=== PATIENT | female | born 1975 ===

== ENCOUNTER 2016-09-29 09:08 | Day surgery (SDC) | payer OTHER ==
[2016-09-29 10:08] VITALS: BMI 25.9
[2016-09-29] MEDS ORDERED: Propofol 10 mg/ml Inj (20 ML) ONE (11:08)
[2016-09-29 11:29] VITALS: TEMP 98
[2016-09-29 12:12] VITALS: O2SAT 98
[2016-09-29 14:27] VITALS: BP 110/60; PULSE 58; RESP 14
== END 2016-09-29 12:20 | disposition home or self-care (01) ==
LOC: C.ENDO 09:08
PROVIDERS: ATTEND Internal Medicine Gastroenterology
DX: K29.70 Gastritis, unspecified, without bleeding (principal)
CPT/HCPCS: 43239; 84703; 88305; 88313; 88342; J2704

== ENCOUNTER 2016-11-12 06:08 | Emergency (ER) | payer OTHER ==
[2016-11-12 06:08] VITALS: BMI 25.9
[2016-11-12] MEDS ORDERED: Morphine 4 MG/ML VIAL ONE (06:50)
[2016-11-12 06:57] LABS: BASO % 0.6 % (0.0-2.0); EOS # 0.1 K/uL (0.0-0.7); EOS % 0.8 % (0.0-4.0); HEMATOCRIT 38.1 % (34.0-47.0); LYMPH % 29.9 % (20.0-40.0); MEAN CELL VOLUME 89.4 fL (81.0-99.0); MEAN CORPUSCULAR HEMOGLOBIN 30.3 pg (27.0-31.0); MEAN CORPUSCULAR HGB CONC 33.9 g/dL (33.0-37.0); MEAN PLATELET VOLUME 8.1 fL (7.2-11.7); MONO # 0.4 K/uL (0.0-0.8); MONO % 5.4 % (0.0-10.0); RED CELL DISTRIBUTION WIDTH 12.8 % (11.5-14.5); WHITE BLOOD COUNT 6.7 K/uL (4.8-10.8)
[2016-11-12] MEDS ORDERED: Morphine 4 MG/ML VIAL IV STA (07:15)
[2016-11-12] MEDS ORDERED: Sodium Chloride 0.9% 1,000 ML IV ONE (07:15)
[2016-11-12 07:22] LABS: CHLORIDE 108 mmol/L (98-107); SODIUM 141 mmol/L (132-148)
[2016-11-12 07:25] LABS: ALB/GLOB RATIO 1.5 (1.0-2.1); ALKALINE PHOSPHATASE 70 U/L (38-126); ALT/SGPT 40 U/L (9-52); AST/SGOT 26 U/L (14-36); BILIRUBIN,TOTAL 0.8 mg/dL (0.2-1.3); BLOOD UREA NITROGEN 14 mg/dL (7-17); CALCIUM 8.5 mg/dl (8.6-10.4); CARBON DIOXIDE 21 mmol/L (22-30); GFR AFRICAN-AMERICAN > 60; GLUCOSE,RANDOM 137 mg/dL (65-105); TOTAL PROTEIN 6.9 g/dL (6.3-8.3)
[2016-11-12] MEDS ORDERED: Iohexol 240 (50 ml) PO ONE (08:00)
[2016-11-12 08:05] LABS: RBC URINE 300 /hpf (0-3); URINE BACTERIA RARE (<OCC); URINE BILIRUBIN NEGATIVE (NEGATIVE); URINE BLOOD 3+ (NEGATIVE); URINE COLOR Yellow (YELLOW); URINE GLUCOSE (UA) NORMAL (Normal); URINE HYALINE CAST 0-2 /lpf (0-2); URINE KETONE NEGATIVE (NEGATIVE); URINE LEUKOCYTE ESTERASE NEG Leu/uL (Negative); URINE PROTEIN 1+ mg/dL (NEGATIVE); URINE UROBILINOGEN NORMAL mg/dL (0.2-1.0); WBC URINE 4 /hpf (0-5)
[2016-11-12] MEDS ORDERED: Iohexol 240 (50 ml) ONE (08:08)
--- NOTE | 2016-11-12 08:57 | C.PDOC ---
History Of Present Illness 41 yr old female presents to the ER With complaints of left abdominal pain since 5am this morning. Patient reports of 3 episodes of non bilious and non bloody vomiting and mild nausea. Patient denies fever, diarrhea, dysuria, hematuria, vaginal discharge or vaginal bleeding. Time Seen by Provider: 11/12/16 07:05 Chief Complaint (Nursing): Abdominal Pain History Per: Patient History/Exam Limitations: no limitations Onset/Duration Of Symptoms: Sudden Onset (Since 5am this morning ) Current Symptoms Are (Timing): Still Present Location Of Pain/Discomfort: LUQ, LLQ Past Medical History Reviewed: Historical Data, Nursing Documentation, Vital Signs Vital Signs: Last Vital Signs Temp 97.4 F L 11/12/16 11:56 Pulse 60 11/12/16 11:56 Resp 18 11/12/16 11:56 BP 104/64 11/12/16 11:56 Pulse Ox 99 11/12/16 11:56 Surgical History: Appendectomy, Endoscopy, - [facility] Procedures BILAT TUBAL DIVISION NEC (03/02/14) LOW CERVICAL (03/02/14) Family History: States: No Known Family Hx - Social History Hx Alcohol Use: No Hx Substance Use: No - Immunization History Hx Tetanus Toxoid Vaccination: No Hx Influenza Vaccination: No Hx Pneumococcal Vaccination: No Review Of Systems Except As Marked, All Systems Reviewed And Found Negative. Constitutional: Negative for: Fever Gastrointestinal: Positive for: Nausea (Mild ), Vomiting (3x ), Abdominal Pain ( Left sided). Negative for: Diarrhea Genitourinary: Negative for: Dysuria, Hematuria, Vaginal Discharge, Vaginal Bleeding Physical Exam - Physical Exam Appears: Well, Non-toxic, No Acute Distress Skin: Warm, Dry, No Rash Head: Atraumatic, Normacephalic Oral Mucosa: Moist Chest: Symmetrical, No Tenderness Cardiovascular: Rhythm Regular, No Murmur Respiratory: Normal Breath Sounds, No Rales, No Rhonchi, No Wheezing Gastrointestinal/Abdominal: Soft, Tenderness (Left sided tenderness. Lower quadrant more tender then upper. ) Back: Normal Inspection, No CVA Tenderness Extremity: Normal ROM, No Swelling Neurological/Psych: Oriented x3, Normal Speech, Normal Motor ED Course And Treatment - Laboratory Results Result Diagrams: 11/12/16 06:52 11/12/16 06:52 O2 Sat by Pulse Oximetry: 98 - CT Scan/US CT - Abdomen & Pelvis Other Rad Studies (CT/US): Read By Radiologist, Radiology Report Reviewed CT/US Interpretation: PROCEDURE: CT abdomen and pelvis dated 11/12/2016. HISTORY: Left-sided abdominal pain (lower>upper). COMPARISON: Comparison made with prior the CT scan of the abdomen and pelvis dated 01/27/2015. TECHNIQUE: Contiguous axial images of the abdomen and pelvis pelvis performed following intravenous injection of approximately 100 cc Visipaque 320 contrast material. . 2 dimensional coronal and Sagittal reformats generated. Radiation dose: Total exam DLP = 430.36 mGy-cm. This CT exam was performed using one or more of the following dose reduction techniques: Automated exposure control, adjustment of the mA and/or kV according to patient size, and/or use of iterative reconstruction technique. FINDINGS: LOWER THORAX: Mild passive atelectasis both posterior lower lung bryant. No evidence of basilar pneumothorax. . Small hiatal hernia. Heart size within range normal. LIVER: Liver is enlarged measuring nearly 20 cm in CC dimension. Mild diffuse fatty hepatic infiltration. . Portal and splenic veins are opacified. GALLBLADDER AND BILE DUCTS: Gallbladder is physiologically distended. No evidence of intraluminal gallbladder calculi. PANCREAS: There is a tiny approximately 2.3 mm rounded low-attenuation focus along the posterior margin of the posterior body/ tail of the pancreas junction (axial series 2, image number 24) that probably represents volume averaging of adjacent peripancreatic fat. Followup interval could be performed to assess stability and exclude other pathology including the malignancy which is less likely the cannot be completely excluded. The pancreatic duct is visible lobe does not appear significantly dilated. SPLEEN: The spleen exhibits normal size measuring approximately 11.1 cm. No splenic mass collection or calcification. ADRENALS: There are no adrenal lesions. KIDNEYS AND URETERS: Kidneys exhibit symmetric nephrograms. There is a tiny 2.4 mm radiopaque density possibly a tiny calcification in the left aspect of the pelvis questionably posterior to the bladder (small calcified pelvic phlebolith) or possibly in the left UVJ (left UVJ calculus). . Correlation with urinalysis recommended to exclude a left UVJ calculus. Previously noted and described tiny right UVJ calculus no longer visible. BLADDER: Urinary bladder is physiologically distended. No evidence of intraluminal urinary bladder calculi. REPRODUCTIVE: Probable hemorrhagic and or involuting left ovarian cyst measuring approximately 17 mm x 14 mm surrounded by a enhancing rim. There is also small amount of free fluid seen within the pelvis. Prominent endometrium. . APPENDIX: The appendix is not seen with certainty on this exam. No evidence of inflammatory changes right lower quadrant of the abdomen. BOWEL: Evaluation of the bowel is limited due to incomplete opacification. The stomach is incompletely distended which presumably accounts thick-walled appearance. Gastritis or other intrinsic/ invasive wall lesion not excluded. Visualized loops of small bowel exhibit normal contour and caliber. No evidence of acute mechanical small bowel obstruction. Oral contrast material has extended into the colon to the level of the splenic flexure region. . The appears to be at least 1 on diverticulum along the proximal descending and another possibly along the sigmoid colon however no radiographic evidence of acute diverticulitis. Diverticulum seen along the descending No definitive abnormal mural wall thickening. PERITONEUM: No gross free intraperitoneal air. Small amount free fluid in the pelvis as above. Small fat containing umbilical hernia. LYMPH NODES: No significant/ bulky adenopathy. VASCULATURE: No evidence of abdominal aortic aneurysm. BONES: The osseous structures appear intact with no evidence of acute compression fractures nor retropulsed fragments the visualized lower thoracic or lumbar spine. There is straightening of the normal lumbar lordosis however vertebral bodies otherwise exhibit normal alignment. Right acetabulum is shallow with poor coverage of the right femoral head on which is also slightly elevated compared to the left side. Small subchondral cystic changes along the acetabulum also noted. . Collectively these findings consistent with long- standing underlying developmental. OTHER FINDINGS: None. IMPRESSION: There is a small involuting left ovarian cyst with small amount of fluid in the pelvis as above. Prominent endometrium. There is a tiny 2.4 mm radiopaque density possibly a tiny calcification in the left aspect of the pelvis questionably posterior to the bladder (small calcified pelvic phlebolith) or possibly in the left UVJ (left UVJ calculus). . Correlation with urinalysis recommended to exclude a left UVJ calculus. Previously noted and described tiny right UVJ calculus no longer visible. Hepatomegaly with fatty hepatic infiltration. There is a very tiny low-attenuation focus within the posterior aspect of the pancreas at the posterior body/ tail junction that probably represents volume averaging peripancreatic fat however followup CT scan at interval recommended to assess stability and exclude other pathology including but not limited to malignancy. 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 Right acetabulum is shallow with poor coverage of the right femoral head on which is also slightly elevated compared to the left side. Small subchondral cystic changes along the acetabulum also noted. . 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 Case discussed with Dr. Man at approximately 11 a.m. with written down and read back verification. Medical Decision Making Medical Decision Making: PLAN: * CT - Abdomen & Pelvis * CBC * CMP * POC * Urinalysis * Zofran IVP * Morphine IV * Sodium Chloride IV Disposition - Disposition Referrals: [facility] [Outside] [facility] [Outside] Disposition: HOME/ ROUTINE Disposition Time: 11:15 Condition: GOOD Additional Instructions: Thank you for letting us take care of you today. Your provider was Dr. Man. You were treated for a kidney stone. The emergency medical care you received today was directed at your acute symptoms. If you were prescribed any medication, please fill it and take as directed. It may take several days for your symptoms to resolve. Return to the Emergency Department if your symptoms worsen, do not improve, or if you have any other problems. Please contact your doctor or call one of the physicians/clinics you have been referred to that are listed on the Patient Visit Information form that is included in your discharge packet. Bring any paperwork you were given at discharge with you along with any medications you are taking to your follow up visit. Our treatment cannot replace ongoing medical care by a primary care provider (PCP) outside of the emergency department. Thank you for allowing the [facility] team to be part of your care today. Follow up with the clinic in 2-3 days for re-evaluation. Prescriptions: Ibuprofen [Motrin] 600 mg PO Q6 PRN #20 tab PRN Reason: Pain, Moderate (4-7) Instructions: Kidney Stones (ED), How to Strain Your Urine (ED) Forms: Gen Discharge Inst Setswana Print Language: CHILEAN - Clinical Impression Clinical Impression: Kidney stone - Scribe Statement The provider has reviewed the documentation as recorded by the Vianca Marley Provider Attestation: All medical record entries made by the Julienibliliane were at my direction and personally dictated by me. I have reviewed the chart and agree that the record accurately reflects my personal performance of the history, physical exam, medical decision making, and the department course for this patient. I have also personally directed, reviewed, and agree with the discharge instructions and disposition.
[2016-11-12] MEDS ORDERED: Iodixanol 320 MG/ML 100 ML BOTTLE IV ONE (10:00)
--- NOTE | 2016-11-12 11:12 | CT ---
PROCEDURE: CT abdomen and pelvis dated 11/12/2016 HISTORY: Left-sided abdominal pain (lower>upper) COMPARISON: Comparison made with prior the CT scan of the abdomen and pelvis dated 01/27/2015. TECHNIQUE: Contiguous axial images of the abdomen and pelvis pelvis performed following intravenous injection of approximately 100 cc Visipaque 320 contrast material. . 2 dimensional coronal and Sagittal reformats generated. Radiation dose: Total exam DLP = 430.36 mGy-cm. This CT exam was performed using one or more of the following dose reduction techniques: Automated exposure control, adjustment of the mA and/or kV according to patient size, and/or use of iterative reconstruction technique. FINDINGS: LOWER THORAX: Mild passive atelectasis both posterior lower lung bryant. No evidence of basilar pneumothorax. . Small hiatal hernia. Heart size within range normal. LIVER: Liver is enlarged measuring nearly 20 cm in CC dimension. Mild diffuse fatty hepatic infiltration. . Portal and splenic veins are opacified. GALLBLADDER AND BILE DUCTS: Gallbladder is physiologically distended. No evidence of intraluminal gallbladder calculi. PANCREAS: There is a tiny approximately 2.3 mm rounded low-attenuation focus along the posterior margin of the posterior body/ tail of the pancreas junction (axial series 2, image number 24) that probably represents volume averaging of adjacent peripancreatic fat. Followup interval could be performed to assess stability and exclude other pathology including the malignancy which is less likely the cannot be completely excluded. The pancreatic duct is visible lobe does not appear significantly dilated. SPLEEN: The spleen exhibits normal size measuring approximately 11.1 cm. No splenic mass collection or calcification. ADRENALS: There are no adrenal lesions. KIDNEYS AND URETERS: Kidneys exhibit symmetric nephrograms. There is a tiny 2.4 mm radiopaque density possibly a tiny calcification in the left aspect of the pelvis questionably posterior to the bladder (small calcified pelvic phlebolith) or possibly in the left UVJ (left UVJ calculus). . Correlation with urinalysis recommended to exclude a left UVJ calculus. Previously noted and described tiny right UVJ calculus no longer visible BLADDER: Urinary bladder is physiologically distended. No evidence of intraluminal urinary bladder calculi. REPRODUCTIVE: Probable hemorrhagic and or involuting left ovarian cyst measuring approximately 17 mm x 14 mm surrounded by a enhancing rim. There is also small amount of free fluid seen within the pelvis. Prominent endometrium. . APPENDIX: The appendix is not seen with certainty on this exam. No evidence of inflammatory changes right lower quadrant of the abdomen. BOWEL: Evaluation of the bowel is limited due to incomplete opacification. The stomach is incompletely distended which presumably accounts thick-walled appearance. Gastritis or other intrinsic/invasive wall lesion not excluded. Visualized loops of small bowel exhibit normal contour and caliber. No evidence of acute mechanical small bowel obstruction. Oral contrast material has extended into the colon to the level of the splenic flexure region. . The appears to be at least 1 on diverticulum along the proximal descending and another possibly along the sigmoid colon however no radiographic evidence of acute diverticulitis. Diverticulum seen along the descending No definitive abnormal mural wall thickening. PERITONEUM: No gross free intraperitoneal air. Small amount free fluid in the pelvis as above Small fat containing umbilical hernia LYMPH NODES: No significant/bulky adenopathy VASCULATURE: No evidence of abdominal aortic aneurysm BONES: The osseous structures appear intact with no evidence of acute compression fractures nor retropulsed fragments the visualized lower thoracic or lumbar spine. There is straightening of the normal lumbar lordosis however vertebral bodies otherwise exhibit normal alignment. Right acetabulum is shallow with poor coverage of the right femoral head on which is also slightly elevated compared to the left side. Small subchondral cystic changes along the acetabulum also noted. . Collectively these findings consistent with long-standing underlying developmental OTHER FINDINGS: None. IMPRESSION: There is a small involuting left ovarian cyst with small amount of fluid in the pelvis as above. Prominent endometrium. There is a tiny 2.4 mm radiopaque density possibly a tiny calcification in the left aspect of the pelvis questionably posterior to the bladder (small calcified pelvic phlebolith) or possibly in the left UVJ (left UVJ calculus). . Correlation with urinalysis recommended to exclude a left UVJ calculus. Previously noted and described tiny right UVJ calculus no longer visible Hepatomegaly with fatty hepatic infiltration. There is a very tiny low-attenuation focus within the posterior aspect of the pancreas at the posterior body/ tail junction that probably represents volume averaging peripancreatic fat however followup CT scan at interval recommended to assess stability and exclude other pathology including but not limited to malignancy. 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 Right acetabulum is shallow with poor coverage of the right femoral head on which is also slightly elevated compared to the left side. Small subchondral cystic changes along the acetabulum also noted. . 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 Man at approximately 11 a.m. with written down and read back verification.
[2016-11-12 11:57] VITALS: BP 104/64; PULSE 60; RESP 18; TEMP 97.4
[2016-11-12 17:59] VITALS: O2SAT 98
== END 2016-11-12 11:55 | disposition home or self-care (01) ==
LOC: C.ER 06:08
DX: N20.0 Calculus of kidney (principal)
CPT/HCPCS: 74177; 80053; 81001; 83690; 85025; 96361; 96374; 96375; 96376; 99285; J1885; J2270; J2405; J7040; Q9966; Q9967

== ENCOUNTER 2017-09-09 06:51 | Emergency (ER) | payer SELFPAY ==
[2017-09-09 06:51] VITALS: BMI 25.9
[2017-09-09] MEDS ORDERED: Sodium Chloride 0.9% 1,000 ML IV ONE (07:24)
--- NOTE | 2017-09-09 07:26 | C.PDOC ---
History Of Present Illness 42-year-old female, presents to the emergency department with complaints of right flank pain and right abdominal area, that is associated with nausea. Time Seen by Provider: 09/09/17 07:19 Chief Complaint (Nursing): Abdominal Pain History Per: Patient History/Exam Limitations: no limitations Onset/Duration Of Symptoms: Days Current Symptoms Are (Timing): Still Present Severity: Mild Location Of Pain/Discomfort: RUQ, Other (right flank) Radiation Of Pain To:: Back Associated Symptoms: Nausea Recent travel outside of the [place]: No Past Medical History Reviewed: Historical Data, Nursing Documentation, Vital Signs Vital Signs: Last Vital Signs Temp 98.2 F 09/09/17 10:53 Pulse 53 L 09/09/17 10:53 Resp 18 09/09/17 10:53 BP 99/64 L 09/09/17 10:53 Pulse Ox 100 09/09/17 10:53 - Medical History PMH: No Chronic Diseases Other PMH: renal colic Surgical History: Appendectomy, Endoscopy, - [facility] Procedures BILAT TUBAL DIVISION NEC (03/02/14) LOW CERVICAL (03/02/14) Family History: States: No Known Family Hx - Social History Hx Alcohol Use: No Hx Substance Use: No - Immunization History Hx Tetanus Toxoid Vaccination: No Hx Influenza Vaccination: No Hx Pneumococcal Vaccination: No Review Of Systems Constitutional: Negative for: Fever Cardiovascular: Negative for: Chest Pain Gastrointestinal: Positive for: Nausea, Abdominal Pain. Negative for: Vomiting , Diarrhea, Constipation Skin: Negative for: Rash Neurological: Negative for: Weakness, Numbness, Headache, Dizziness Physical Exam - Physical Exam Appears: Non-toxic, No Acute Distress Skin: Normal Color, Warm, Dry, No Rash Head: Normacephalic Eye(s): bilateral: PERRL Nose: Normal Oral Mucosa: Moist Lips: Normal Appearing Neck: Normal ROM Cardiovascular: Rhythm Regular, No Murmur Respiratory: Normal Breath Sounds, No Accessory Muscle Use Gastrointestinal/Abdominal: Soft, Tenderness (right sided abdominal ), No Guarding, No Rebound Back: CVA Tenderness (right) Extremity: Normal ROM, No Deformity, No Swelling Neurological/Psych: Oriented x3, Normal Speech Gait: Steady ED Course And Treatment - Laboratory Results Result Diagrams: 09/09/17 07:39 09/09/17 07:39 Lab Interpretation: Normal Urine POC: Negative O2 Sat by Pulse Oximetry: 98 (RA) Pulse Ox Interpretation: Normal - CT Scan/US No standard instances Other Rad Studies (CT/US): Read By Radiologist, Radiology Report Reviewed CT/US Interpretation: FINDINGS: LOWER THORAX: Unremarkable. LIVER: Unremarkable. No gross lesion or ductal dilatation. GALLBLADDER AND BILE DUCTS : Unremarkable. PANCREAS: Unremarkable. No gross lesion or ductal dilatation. SPLEEN: Unremarkable. ADRENALS: Unremarkable. No mass. KIDNEYS AND URETERS: Punctate right interpolar nonobstructing calculus. No hydronephrosis. No solid mass. VASCULATURE: Unremarkable. No aortic aneurysm. BOWEL: Unremarkable. No obstruction. No gross mural thickening. APPENDIX: Unremarkable. Normal appendix. PERITONEUM: Transverse pelvic postsurgical scar , likely related to prior section. Trace pelvic free fluid, likely physiologic. No free air. LYMPH NODES: Unremarkable. No enlarged lymph nodes. BLADDER: Unremarkable. REPRODUCTIVE: Unremarkable. BONES: No acute fracture. OTHER FINDINGS: None. IMPRESSION: Punctate right interpolar nonobstructive calculus. No obstructive urolithiasis or evidence of recently passed genitourinary calculus. Progress Note: Treated with IVF NSS and toradol IV. On re-evaluation mild Right CVA tenderness. Discharged in stable condition, advised to follow up at clinic for further evaluation Reassessment Condition: Improved Medical Decision Making Medical Decision Making: Plan: * CT Abd/Pel * Bloodwork * IVFs, Toradol, Zofran * UA * Reassess and DIsposition Disposition Counseled Patient/Family Regarding: Studies Performed, Diagnosis, Need For Followup, Rx Given - Disposition Referrals: [facility] [Outside] [facility] [Outside] Disposition: HOME/ ROUTINE Disposition Time: 11:00 Condition: STABLE Additional Instructions: Return to ED if any increase symptoms Prescriptions: Naproxen [Naprosyn] 1 tab PO BID PRN #25 tab PRN Reason: Pain Instructions: Flank Pain Forms: [facility] (Indonesian) - POA Present On Arrival: None - Clinical Impression Clinical Impression: Flank pain - Scribe Statement The provider has reviewed the documentation as recorded by the Scribe (Naa Gaston) All medical record entries made by the Scribe were at my direction and personally dictated by me. I have reviewed the chart and agree that the record accurately reflects my personal performance of the history, physical exam, medical decision making, and the department course for this patient. I have also personally directed, reviewed, and agree with the discharge instructions and disposition.
[2017-09-09] MEDS ORDERED: Sodium Chloride 0.9% 1,000 ML ONE (07:43)
[2017-09-09 07:47] LABS: BASO % 0.2 % (0.0-2.0); EOS # 0.1 K/uL (0.0-0.7); EOS % 0.9 % (0.0-4.0); HEMOGLOBIN 12.5 g/dL (11.0-16.0); LYMPH # 1.9 K/uL (1.0-4.3); LYMPH % 30.5 % (20.0-40.0); MEAN CELL VOLUME 88.9 fL (81.0-99.0); MEAN CORPUSCULAR HEMOGLOBIN 30.8 pg (27.0-31.0); MEAN CORPUSCULAR HGB CONC 34.6 g/dL (33.0-37.0); MEAN PLATELET VOLUME 7.5 fL (7.2-11.7); MONO # 0.4 K/uL (0.0-0.8); MONO % 6.3 % (0.0-10.0); NEUT # 3.8 K/uL (1.8-7.0); NEUT % 62.1 % (50.0-75.0); RBC 4.05 Mil/uL (3.80-5.20); RED CELL DISTRIBUTION WIDTH 13.8 % (11.5-14.5); WHITE BLOOD COUNT 6.1 K/uL (4.8-10.8)
[2017-09-09 08:00] LABS: SQUAMOUS EPITHIAL 11 /hpf (0-5); URINE BACTERIA RARE (<OCC); URINE BILIRUBIN NEGATIVE (NEGATIVE); URINE BLOOD 2+ (NEGATIVE); URINE CLARITY Hazy (Clear); URINE COLOR Yellow (YELLOW); URINE GLUCOSE (UA) NORMAL (Normal); URINE LEUKOCYTE ESTERASE NEG Leu/uL (Negative); URINE PROTEIN NEGATIVE (NEGATIVE); URINE UROBILINOGEN NORMAL mg/dL (0.2-1.0)
[2017-09-09 08:05] LABS: ALB/GLOB RATIO 1.4 (1.0-2.1); ALT/SGPT 27 U/L (9-52); AST/SGOT 22 U/L (14-36); BLOOD UREA NITROGEN 11 mg/dL (7-17); CALCIUM 8.4 mg/dl (8.6-10.4); GFR AFRICAN-AMERICAN > 60; GFR NON-AFRICAN AMERICAN > 60
--- NOTE | 2017-09-09 10:14 | CT ---
PROCEDURE: CT Abdomen and Pelvis without intravenous contrast HISTORY: Pain COMPARISON: CT scan of the abdomen pelvis dated 11/12/2016. TECHNIQUE: Contiguous images were obtained from the domes of the diaphragms to the upper thighs without the administration of intravenous contrast. Oral contrast was not administered. Radiation dose: Total exam DLP = 467.1 mGy-cm. This CT exam was performed using one or more of the following dose reduction techniques: Automated exposure control, adjustment of the mA and/or kV according to patient size, and/or use of iterative reconstruction technique. FINDINGS: LOWER THORAX: Unremarkable. LIVER: Unremarkable. No gross lesion or ductal dilatation. GALLBLADDER AND BILE DUCTS: Unremarkable. PANCREAS: Unremarkable. No gross lesion or ductal dilatation. SPLEEN: Unremarkable. ADRENALS: Unremarkable. No mass. KIDNEYS AND URETERS: Punctate right interpolar nonobstructing calculus. No hydronephrosis. No solid mass. VASCULATURE: Unremarkable. No aortic aneurysm. BOWEL: Unremarkable. No obstruction. No gross mural thickening. APPENDIX: Unremarkable. Normal appendix. PERITONEUM: Transverse pelvic postsurgical scar, likely related to prior section. Trace pelvic free fluid, likely physiologic. No free air. LYMPH NODES: Unremarkable. No enlarged lymph nodes. BLADDER: Unremarkable. REPRODUCTIVE: Unremarkable. BONES: No acute fracture. OTHER FINDINGS: None. IMPRESSION: Punctate right interpolar nonobstructive calculus. No obstructive urolithiasis or evidence of recently passed genitourinary calculus.
[2017-09-09 10:54] VITALS: BP 99/64; PULSE 53; RESP 18; TEMP 98.2
[2017-09-09 15:44] VITALS: O2SAT 98
== END 2017-09-09 10:54 | disposition home or self-care (01) ==
LOC: C.ER 06:51
DX: R10.11 Right upper quadrant pain (principal)
CPT/HCPCS: 74176; 80053; 81001; 85025; 96361; 96374; 96375; 99285; J1885; J2405; J7040